=== PATIENT | female | born 1970 | race African-American/Black ===

== ENCOUNTER 2018-08-29 19:00 | Inpatient (IN) | payer BC, OTHER ==
[~2018-08-29] VITALS: Ht 160 cm; Wt 68.1 kg
[~2018-08-29 19:00] MED LIST: BUSP10TA23 PO; FLUO40CA7 PO; PHEN100C23 PO; TOPI100T37 PO; TOPI200T PO
[2018-08-29 22:08] LABS: BASOPHILS % (AUTO) 0.9 % (0.0-2.0); EOSINOPHILS % (AUTO) 3.4 % (1.0-6.0); HEMATOCRIT 33.9 % (36-46); LYMPHOCYTES # (AUTO) 1.5 K/uL (1.0-4.8); LYMPHOCYTES % (AUTO) 30.6 % (22.0-44.0); MEAN CORPUSCULAR HEMOGLOBIN 27.7 pg (26.0-34.0); MEAN CORPUSCULAR HGB CONC 32.4 G/dL (31.0-37.0); MEAN CORPUSCULAR VOLUME 86 fL (80-100); MONOCYTES # (AUTO) 0.6 K/uL (0.1-1.0); MONOCYTES % (AUTO) 11.1 % (2.0-9.0); NEUTROPHILS # (AUTO) 2.7 K/uL (1.8-7.7); PLATELET COUNT (AUTO) 253 K/uL (150-450); RED BLOOD CELL COUNT(AUTO) 3.96 MIL/uL (4.00-5.20); RED CELL DISTRIBUTION WIDTH 15.9 % (11.5-14.5)
[2018-08-29 22:20] LABS: ANION GAP 7 mmol/L (8-16); CARBON DIOXIDE 27 mmol/L (22-29); CHLORIDE 107 mmol/L (98-107); CREATININE 0.76 mg/dL (0.60-1.30); GLOMERULAR FILTR. RATE CALC > 60 mL/min (>60); GLUCOSE,RANDOM 92 mg/dL (70-110); POTASSIUM 3.8 mmol/L (3.5-5.1); SODIUM SERUM 141 mmol/L (136-145); UREA NITROGEN, BLOOD 11 mg/dL (7-18)
[2018-08-29 22:26] LABS: ALANINE AMINOTRANSFERASE 30 U/L (12-78); ALBUMIN 3.3 g/dL (3.4-5.0); ALKALINE PHOSPHATASE 75 U/L (46-116); ASPARTATE AMINOTRANSFERASE 33 U/L (15-37); BILIRUBIN,TOTAL 0.4 mg/dL (0.1-1.0); TOTAL PROTEIN, SERUM 6.5 g/dL (6.4-8.2)
[2018-08-29 22:48] LABS: AMPHET/METH SCREEN,URINE POSITIVE (NEGATIVE); BARBITURATE SCREEN, URINE NEGATIVE (NEGATIVE); BENZODIAZEPINES SCREEN,URINE NEGATIVE (NEGATIVE); CANNABINOID SCREEN,URINE POSITIVE (NEGATIVE); COCAINE SCREEN,URINE NEGATIVE (NEGATIVE); METHADONE SCREEN, URINE NEGATIVE (NEGATIVE); OPIATE SCREEN,URINE NEGATIVE (NEGATIVE)
[2018-08-29 22:49] LABS: PHENCYCLIDINE SCREEN,URINE NEGATIVE (NEGATIVE)
[2018-08-30 02:03] VITALS: BP 124/84
[2018-08-30] MEDS ORDERED: MAG HYDROX/AL HYDROX/SIMETH ES 30 ML SUSPENSION UDCUP PO PRN (07:00)
[2018-08-30] MEDS ORDERED: ALBUTEROL SULFATE HFA 90 MCG/PUFF 8 GM INHALER IH PRN (07:00)
[2018-08-30] MEDS ORDERED: ONDANSETRON HCL 4 MG TABLET PO PRN (07:00)
[2018-08-30] MEDS ORDERED: MAGNESIUM HYDROXIDE SUSPENSION 30 ML UDCUP PO PRN (07:00)
[2018-08-30] MEDS ORDERED: LOPERAMIDE HCL 2 MG CAPSULE PO PRN (07:00)
[2018-08-30] MEDS ORDERED: DOCUSATE SODIUM 100 MG CAPSULE PO PRN (07:00)
[2018-08-30] MEDS ORDERED: ACETAMINOPHEN 325 MG TABLET PO PRN (07:00)
[2018-08-30] MEDS ORDERED: CloNIDine HCL 0.1 MG TABLET PO PRN (07:00)
[2018-08-30] MEDS ORDERED: PETROLATUM,WHITE 28 GM JELLY TP PRN (07:00)
[2018-08-30] MEDS ORDERED: GuaiFENesin/D-METHORPHAN [SUGAR-FREE] 200-20MG/10 ML SYRUP UDCUP PO PRN (07:00)
[2018-08-30] MEDS ORDERED: NICOTINE 14 MG/24 HOUR PATCH TD PRN (07:00)
[2018-08-30 08:36] VITALS: BP 121/74
[2018-08-30] MEDS ORDERED: ESCITALOPRAM OXALATE 10 MG TABLET PO ONE (13:00)
[2018-08-30 16:01] VITALS: BP 119/82
[2018-08-30] MEDS: PHENYTOIN SODIUM 100 MG ER CAPSULE PO SCH (16:30)
[2018-08-31 00:02] VITALS: BP 147/94
[2018-08-31] MEDS: LORazepam 2 MG TABLET PO PRN (00:10)
[2018-08-31] MEDS: HALOPERIDOL 5 MG TABLET PO PRN (00:10)
[2018-08-31] MEDS: ZOLPIDEM TARTRATE 10 MG TABLET PO PRN (00:10)
[2018-08-31 08:10] VITALS: BP 154/80
[2018-08-31] MEDS ORDERED: ESCITALOPRAM OXALATE 10 MG TABLET PO SCH (09:00)
[2018-08-31] MEDS: PHENYTOIN SODIUM 100 MG ER CAPSULE PO SCH ×2 (09:01→16:17)
[2018-08-31] MEDS: RisperiDONE 2 MG TABLET PO SCH (16:17)
[2018-08-31 19:46] VITALS: BP 130/96
[2018-09-01] MEDS: LORazepam 2 MG TABLET PO PRN (02:04)
[2018-09-01] MEDS: ZOLPIDEM TARTRATE 10 MG TABLET PO PRN (02:04)
[2018-09-01 02:31] VITALS: BP 142/88
[2018-09-01 08:14] VITALS: BP 144/80
[2018-09-01 08:15] LABS: BASOPHILS % (AUTO) 0.9 % (0.0-2.0); EOSINOPHILS % (AUTO) 0.3 % (1.0-6.0); HEMATOCRIT 34.9 % (36-46); HEMOGLOBIN 11.2 g/dL (12.0-16.0); LYMPHOCYTES # (AUTO) 0.7 K/uL (1.0-4.8); LYMPHOCYTES % (AUTO) 16.3 % (22.0-44.0); MEAN CORPUSCULAR HEMOGLOBIN 27.7 pg (26.0-34.0); MEAN CORPUSCULAR HGB CONC 32.2 G/dL (31.0-37.0); MEAN CORPUSCULAR VOLUME 86 fL (80-100); MONOCYTES # (AUTO) 0.3 K/uL (0.1-1.0); MONOCYTES % (AUTO) 6.8 % (2.0-9.0); NEUTROPHILS # (AUTO) 3.4 K/uL (1.8-7.7); NEUTROPHILS % (AUTO) 75.7 % (40.0-70.0); PLATELET COUNT (AUTO) 226 K/uL (150-450); RED BLOOD CELL COUNT(AUTO) 4.05 MIL/uL (4.00-5.20); RED CELL DISTRIBUTION WIDTH 15.3 % (11.5-14.5)
[2018-09-01 08:47] LABS: ALANINE AMINOTRANSFERASE 28 U/L (12-78); ALBUMIN 2.9 g/dL (3.4-5.0); ALKALINE PHOSPHATASE 68 U/L (46-116); ANION GAP 7 mmol/L (8-16); ASPARTATE AMINOTRANSFERASE 26 U/L (15-37); BILIRUBIN,TOTAL 0.3 mg/dL (0.1-1.0); CALCIUM, TOTAL 8.7 mg/dL (8.8-10.5); CARBON DIOXIDE 27 mmol/L (22-29); CHLORIDE 104 mmol/L (98-107); CHOL/HDL RATIO 1.7 (3.9-5.7); CHOLESTEROL 125 mg/dL (131-200); CREATININE 0.61 mg/dL (0.60-1.30); FREE T4 (FREE THYROXINE) 1.16 ng/dL (0.76-1.46); GLOMERULAR FILTR. RATE CALC > 60 mL/min (>60); GLUCOSE,RANDOM 102 mg/dL (70-110); HDL CHOLESTEROL 74 mg/dL (40-60); LDL CHOL (CALC.) 42 mg/dL (0-130); POTASSIUM 4.2 mmol/L (3.5-5.1); SODIUM SERUM 138 mmol/L (136-145); TOTAL PROTEIN, SERUM 5.7 g/dL (6.4-8.2); TRIGLYCERIDES 45 mg/dL (15-150); UREA NITROGEN, BLOOD 9 mg/dL (7-18)
[2018-09-01] MEDS: ESCITALOPRAM OXALATE 20 MG TABLET PO SCH (08:56)
[2018-09-01] MEDS: AmLODIPine BESYLATE 5 MG TABLET PO SCH (08:56)
[2018-09-01] MEDS: RisperiDONE 2 MG TABLET PO SCH ×2 (08:56→16:27)
[2018-09-01] MEDS: PHENYTOIN SODIUM 100 MG ER CAPSULE PO SCH ×2 (08:56→16:27)
[2018-09-01 09:52] LABS: HEMOGLOBIN A1C 5.1 % (4.5-6.2)
[2018-09-01] MEDS ORDERED: DIVALPROEX SODIUM 500 MG ER TABLET PO SCH (11:00)
[2018-09-01 16:13] VITALS: BP 122/72
[2018-09-01] MEDS ORDERED: OLANZapine 10 MG TABLET PO SCH (21:00)
[2018-09-02 00:11] VITALS: BP 134/95
[2018-09-02 08:05] VITALS: BP 123/79
[2018-09-02] MEDS: RisperiDONE 2 MG TABLET PO SCH ×2 (08:20→16:16)
[2018-09-02] MEDS: ESCITALOPRAM OXALATE 20 MG TABLET PO SCH (08:20)
[2018-09-02] MEDS: PHENYTOIN SODIUM 100 MG ER CAPSULE PO SCH ×2 (08:20→16:16)
[2018-09-02] MEDS: AmLODIPine BESYLATE 5 MG TABLET PO SCH (08:24)
[2018-09-02 16:27] VITALS: BP 138/85
[2018-09-03 06:17] VITALS: BP 121/78
[2018-09-03] MEDS: ESCITALOPRAM OXALATE 20 MG TABLET PO SCH (08:20)
[2018-09-03] MEDS: PHENYTOIN SODIUM 100 MG ER CAPSULE PO SCH ×2 (08:20→16:03)
[2018-09-03] MEDS: RisperiDONE 2 MG TABLET PO SCH ×2 (08:20→16:03)
[2018-09-03] MEDS: AmLODIPine BESYLATE 5 MG TABLET PO SCH (08:20)
[2018-09-03 08:29] VITALS: BP 118/60
[2018-09-03] MEDS: GABAPENTIN 300 MG CAPSULE PO SCH ×2 (10:49→16:03)
[2018-09-03 16:10] VITALS: BP 140/84
[2018-09-04 00:07] VITALS: BP 121/67
[2018-09-04 05:44] VITALS: BP 126/69
[2018-09-04] MEDS: IBUPROFEN 400 MG TABLET PO PRN (05:52)
[2018-09-04 08:08] VITALS: BP 126/91
[2018-09-04] MEDS: PHENYTOIN SODIUM 100 MG ER CAPSULE PO SCH ×2 (08:34→17:49)
[2018-09-04] MEDS: GABAPENTIN 300 MG CAPSULE PO SCH ×2 (08:34→17:49)
[2018-09-04] MEDS: RisperiDONE 2 MG TABLET PO SCH ×2 (08:34→17:49)
[2018-09-04] MEDS: AmLODIPine BESYLATE 5 MG TABLET PO SCH (08:34)
[2018-09-04] MEDS: ESCITALOPRAM OXALATE 20 MG TABLET PO SCH (08:34)
[2018-09-04 16:18] VITALS: BP 124/69
[2018-09-04] MEDS: LORazepam 2 MG TABLET PO PRN (17:02)
[2018-09-05 06:09] VITALS: BP 107/69
[2018-09-05 08:30] VITALS: BP 111/74
[2018-09-05] MEDS: RisperiDONE 2 MG TABLET PO SCH ×2 (08:42→16:45)
[2018-09-05] MEDS: ESCITALOPRAM OXALATE 20 MG TABLET PO SCH (08:42)
[2018-09-05] MEDS: PHENYTOIN SODIUM 100 MG ER CAPSULE PO SCH ×2 (08:43→16:45)
[2018-09-05] MEDS: AmLODIPine BESYLATE 5 MG TABLET PO SCH (08:43)
[2018-09-05] MEDS: GABAPENTIN 300 MG CAPSULE PO SCH ×2 (08:43→16:45)
[2018-09-05 13:28] VITALS: BP 115/79
[2018-09-05 16:10] VITALS: BP 108/75
[2018-09-05] MEDS: HALOPERIDOL 5 MG TABLET PO PRN (16:20)
[2018-09-05] MEDS: LORazepam 2 MG TABLET PO PRN (16:20)
[2018-09-06 05:08] VITALS: BP 128/72
[2018-09-06 08:04] VITALS: BP 116/66
[2018-09-06] MEDS: RisperiDONE 2 MG TABLET PO SCH ×2 (08:16→16:10)
[2018-09-06] MEDS: GABAPENTIN 300 MG CAPSULE PO SCH ×2 (08:17→16:10)
[2018-09-06] MEDS: LORazepam 2 MG TABLET PO PRN (08:17)
[2018-09-06] MEDS: PHENYTOIN SODIUM 100 MG ER CAPSULE PO SCH ×2 (08:17→16:10)
[2018-09-06] MEDS: AmLODIPine BESYLATE 5 MG TABLET PO SCH (08:17)
[2018-09-06] MEDS: ESCITALOPRAM OXALATE 20 MG TABLET PO SCH (08:17)
[2018-09-06 16:15] VITALS: BP 102/64
[2018-09-07 06:41] VITALS: BP 109/64
[2018-09-07 08:05] VITALS: BP 109/58
[2018-09-07] MEDS: ESCITALOPRAM OXALATE 20 MG TABLET PO SCH (08:15)
[2018-09-07] MEDS: RisperiDONE 2 MG TABLET PO SCH ×2 (08:15→17:05)
[2018-09-07] MEDS: PHENYTOIN SODIUM 100 MG ER CAPSULE PO SCH ×2 (08:15→17:05)
[2018-09-07] MEDS: GABAPENTIN 300 MG CAPSULE PO SCH ×2 (08:15→17:05)
[2018-09-07] MEDS: AmLODIPine BESYLATE 5 MG TABLET PO SCH (08:15)
[2018-09-07] MEDS: BuPROPion HCL 100 MG SR TABLET PO SCH (12:04)
[2018-09-07 16:02] VITALS: BP 100/67
[2018-09-07] MEDS ORDERED: PHENYTOIN SODIUM 100 MG ER CAPSULE PO ONE (21:00)
[2018-09-08 04:45] VITALS: BP 115/69
[2018-09-08] MEDS: IBUPROFEN 400 MG TABLET PO PRN (04:46)
[2018-09-08 08:08] VITALS: BP 114/64
[2018-09-08] MEDS: BuPROPion HCL 100 MG SR TABLET PO SCH ×2 (08:21→12:04)
[2018-09-08] MEDS: GABAPENTIN 300 MG CAPSULE PO SCH ×2 (08:21→16:33)
[2018-09-08] MEDS: AmLODIPine BESYLATE 5 MG TABLET PO SCH (08:21)
[2018-09-08] MEDS: PHENYTOIN SODIUM 100 MG ER CAPSULE PO SCH ×2 (08:21→16:33)
[2018-09-08] MEDS: RisperiDONE 2 MG TABLET PO SCH ×2 (08:21→16:33)
[2018-09-08] MEDS: ESCITALOPRAM OXALATE 20 MG TABLET PO SCH (08:22)
[2018-09-08 16:01] VITALS: BP 131/77
[2018-09-08] MEDS: ZOLPIDEM TARTRATE 10 MG TABLET PO PRN (20:34)
[2018-09-09 01:51] VITALS: BP 112/75
[2018-09-09] MEDS: IBUPROFEN 400 MG TABLET PO PRN (01:52)
[2018-09-09 08:00] VITALS: BP 124/69
[2018-09-09] MEDS: GABAPENTIN 300 MG CAPSULE PO SCH ×2 (08:12→16:37)
[2018-09-09] MEDS: PHENYTOIN SODIUM 100 MG ER CAPSULE PO SCH ×2 (08:12→16:36)
[2018-09-09] MEDS: RisperiDONE 2 MG TABLET PO SCH ×2 (08:12→16:37)
[2018-09-09] MEDS: ESCITALOPRAM OXALATE 20 MG TABLET PO SCH (08:13)
[2018-09-09] MEDS: BuPROPion HCL 100 MG SR TABLET PO SCH ×2 (08:13→12:08)
[2018-09-09] MEDS: AmLODIPine BESYLATE 5 MG TABLET PO SCH (08:16)
[2018-09-09 16:03] VITALS: BP 108/67
[2018-09-09] MEDS: ZOLPIDEM TARTRATE 10 MG TABLET PO PRN (20:17)
[2018-09-10 02:28] VITALS: BP 102/76
[2018-09-10] MEDS: HALOPERIDOL 5 MG TABLET PO PRN (02:36)
[2018-09-10] MEDS: LORazepam 2 MG TABLET PO PRN (02:36)
[2018-09-10 08:06] VITALS: BP 100/59
[2018-09-10 08:50] VITALS: BP 112/70
[2018-09-10] MEDS: BuPROPion HCL 100 MG SR TABLET PO SCH ×2 (08:56→12:26)
[2018-09-10] MEDS: GABAPENTIN 300 MG CAPSULE PO SCH (08:56)
[2018-09-10] MEDS: PHENYTOIN SODIUM 100 MG ER CAPSULE PO SCH (08:56)
[2018-09-10] MEDS: AmLODIPine BESYLATE 5 MG TABLET PO SCH (08:57)
[2018-09-10] MEDS: ESCITALOPRAM OXALATE 20 MG TABLET PO SCH (08:57)
[2018-09-10] MEDS: RisperiDONE 2 MG TABLET PO SCH (08:57)
[2018-09-10] MEDS ORDERED: GABA-529 PO (09:14)
[2018-09-10] MEDS ORDERED: RISP1TAB89 PO (09:21)
[2018-09-10] MEDS ORDERED: BUPR100T5 PO (09:21)
[2018-09-10] MEDS ORDERED: ESCI5TAB PO (09:23)
[2018-09-10] MEDS ORDERED: PHEN100C23 PO (09:24)
== END 2018-09-10 13:10 | DRG 885 ==
LOC: EMS 19:00 → B2S 23:00 → 3EX 08-30 21:30 → B3A 08-30 21:30 → B2S 08-30 21:30
PROVIDERS: ADMIT Psychiatry & Neurology Psychiatry; ATTEND Psychiatry & Neurology Psychiatry
DX: F33.9 Major depressive disorder, recurrent, unspecified (principal); R45.851 Suicidal ideations; D64.9 Anemia, unspecified; F10.10 Alcohol abuse, uncomplicated; G40.909 Epilepsy, unspecified, not intractable, without status epilepticus; F19.10 Other psychoactive substance abuse, uncomplicated; F15.90 Other stimulant use, unspecified, uncomplicated; F41.9 Anxiety disorder, unspecified; F12.90 Cannabis use, unspecified, uncomplicated; Z59.0 Homelessness; Z79.899 Other long term (current) drug therapy; Z81.8 Family history of other mental and behavioral disorders; Z98.84 Bariatric surgery status
CPT/HCPCS: 83036; 84439; 84443; G0480

== ENCOUNTER 2022-08-30 08:03 | Emergency (ER) | payer MEDICARE, MEDICAID ==
[~2022-08-30] VITALS: Ht 162.6 cm; Wt 67.3 kg
[~2022-08-30 08:03] MED LIST changes: +BUPR100T5 PO; +ESCI5TAB PO; -FLUO40CA7 PO; +GABA-529 PO; +RISP1TAB89 PO; -TOPI100T37 PO; -TOPI200T PO
[2022-08-30] MEDS ORDERED: OXCA300T28 PO (08:15)
[2022-08-30] MEDS ORDERED: FERR325T23 PO (08:15)
[2022-08-30 10:22] VITALS: BP 135/90
== END 2022-08-30 11:18 | disposition home or self-care (01) ==
LOC: EMS 08:03
DX: F10.10 Alcohol abuse, uncomplicated (principal); F41.9 Anxiety disorder, unspecified; F32.A Depression, unspecified; F12.90 Cannabis use, unspecified, uncomplicated; F15.90 Other stimulant use, unspecified, uncomplicated; Z98.890 Other specified postprocedural states; Z59.00 Homelessness unspecified
CPT/HCPCS: 99283